=== PATIENT | male | born 1940 | race Caucasian/White ===

== ENCOUNTER 2022-12-29 11:14 | Inpatient (IN) | payer MEDICARE, BC ==
[~2022-12-29] VITALS: Ht 172.7 cm; Wt 84.1 kg
[~2022-12-29 11:14] MED LIST: ALLO100T PO; ASPI-1071 PO; ATOR20TA66 PO; BIO COMPLETE PO; CARV6.253 PO; CHOL100046 PO; LECI400C2 PO; LOSA25TA41 PO; NITR0.4T51 SL; UBID30CA11 PO; VITAMIN C PO; [UNRECOGNIZED DRUG - OTHER] PO
[2022-12-29 11:45] LABS: BASOPHILS # (AUTO) 0.1 X10'3 (0-0.2); BASOPHILS % (AUTO) 0.9 % (0-1); EOSINOPHILS # (AUTO) 0.1 X10'3 (0-0.9); EOSINOPHILS % (AUTO) 0.6 % (0-6); HEMATOCRIT 40.3 % (42.0-52.0); HEMOGLOBIN 13.5 g/dl (14.0-17.9); MEAN CORPUSCULAR HEMOGLOBIN 29.5 PG (27.0-31.0); MEAN CORPUSCULAR HGB CONC 33.4 g/dL (33.0-36.5); MEAN CORPUSCULAR VOLUME 88.5 FL (78-98); MEAN PLATELET VOLUME 8.2 FL (7.4-10.4); MONOCYTES # (AUTO) 0.9 X10'3 (0-0.9); MONOCYTES % (AUTO) 9.5 % (2-12); PLATELET COUNT 257 X10'3 (140-440); RED BLOOD COUNT 4.56 X10'6 (4.70-6.10); RED CELL DISTRIBUTION WIDTH 15.5 % (11.5-14.5)
[2022-12-29 12:12] LABS: ALANINE AMINOTRANSFERASE 110 U/L (12-78); ALBUMIN 2.8 G/DL (3.4-5.0); ALBUMIN/GLOBULIN RATIO 0.7 (1.1-1.5); ALKALINE PHOSPHATASE 115 IU/L (46-116); ANION GAP 7 (8-16); ASPARTATE AMINO TRANSFERASE 78 U/L (10-37); BILIRUBIN,TOTAL 0.6 MG/DL (0.1-1.0); BLOOD UREA NITROGEN 33 MG/DL (7-18); BUN/CREATININE RATIO 21.4 (10.0-20.0); CHLORIDE 98 MMOL/L (99-107); CREATININE 1.54 MG/DL (0.60-1.10); GLUCOSE 116 MG/DL (70-104); MAGNESIUM 2.3 MG/DL (1.5-2.4); POTASSIUM 3.6 MMOL/L (3.5-5.1); SODIUM 133 MMOL/L (135-145); TOTAL CARBON DIOXIDE 27.7 MMOL/L (24-32); TOTAL PROTEIN 6.7 G/DL (6.4-8.2); eGFR 43 ML/MIN
[2022-12-29] MEDS ORDERED: FURO-150 PO ×2 (12:50)
[2022-12-29] MEDS ORDERED: POTA-208 PO ×2 (12:50)
[2022-12-29] MEDS ORDERED: POTASSIUM BICARB 20meq eff tab 20 MEQ TABLET.EFF PO STA ×2 (12:52→12:58)
[2022-12-29] MEDS ORDERED: furosemide 20MG tablet PO ONE (12:55)
[2022-12-29] MEDS ORDERED: POTASSIUM BICARBONATE/CIT AC 10 MEQ TABLET.EFF PO STA (13:07)
[2022-12-29] MEDS ORDERED: potassium Cl 20 mEq SR tablet PO PRN ×2 (14:45)
[2022-12-29] MEDS ORDERED: acetaminophen 650mg rectal suppository RC PRN (14:45)
[2022-12-29] MEDS ORDERED: magnesium 4gm in 100ml NS 100 ML IV PRN (14:45)
[2022-12-29] MEDS ORDERED: magnesium Cl slow-release 64mg tablet PO PRN (14:45)
[2022-12-29] MEDS ORDERED: ondansetron/PF 4mg/2ml inj IV PRN (14:45)
[2022-12-29] MEDS ORDERED: ondansetron 4mg rapidly disintigrating tab PO PRN (14:45)
[2022-12-29] MEDS ORDERED: magnesium hydroxide 30ml (MOM) UD suspension PO PRN (14:45)
[2022-12-29] MEDS ORDERED: potassium Cl 40MEQ/1/2NS 520ml 520 ML IV PRN (14:45)
[2022-12-29] MEDS ORDERED: magnesium 2GM in 50ml NS 50 ML IV PRN (14:45)
[2022-12-29] MEDS ORDERED: mag hydrox/Alum hydrox/simeth 30ml oral suspension PO PRN (14:45)
[2022-12-29] MEDS ORDERED: acetaminophen 325mg tablet PO PRN ×2 (14:45)
[2022-12-29] MEDS ORDERED: LEVO-65 PO (14:48)
[2022-12-29] MEDS ORDERED: FURO40TA4 PO (14:48)
[2022-12-29] MEDS ORDERED: METO-384 PO (14:48)
[2022-12-29] MEDS ORDERED: PERFLUTREN PROTEIN-A MICROSPHR (Optison) 0.22 MG/ML 3ML VIAL IV ONE (14:50)
[2022-12-29] MEDS: furosemide inj 100 MG in normal saline 100ml IV soln 90 ML IV SCH (16:45)
[2022-12-29 17:28] VITALS: BP 102/60
[2022-12-29 18:00] VITALS: BP 93/61
[2022-12-29] MEDS: K and/or MAG REPLACEMENT MC SCH (19:34)
[2022-12-29] MEDS ORDERED: temazepam 15mg capsule PO PRN (21:00)
[2022-12-29 23:00] VITALS: BP 93/44
[2022-12-30 03:00] VITALS: BP 96/62
[2022-12-30 06:00] VITALS: BP 106/69
--- NOTE | 2022-12-30 06:44 | NUR ---
Problems reprioritized. Patient report given, questions answered & plan of care reviewed with Awilda ESCALANTE. Patient stable at shift change.
[2022-12-30 07:23] LABS: BASOPHILS # (AUTO) 0.1 X10'3 (0-0.2); BASOPHILS % (AUTO) 0.8 % (0-1); EOSINOPHILS # (AUTO) 0.1 X10'3 (0-0.9); HEMOGLOBIN 13.1 g/dl (14.0-17.9); LYMPHOCYTES % (AUTO) 13.1 % (21-51); MEAN CORPUSCULAR HEMOGLOBIN 29.7 PG (27.0-31.0); MEAN CORPUSCULAR HGB CONC 33.5 g/dL (33.0-36.5); MEAN CORPUSCULAR VOLUME 88.7 FL (78-98); MEAN PLATELET VOLUME 8.4 FL (7.4-10.4); MONOCYTES # (AUTO) 0.7 X10'3 (0-0.9); MONOCYTES % (AUTO) 8.8 % (2-12); NEUTROPHILS # (AUTO) 5.8 X10'3 (1.8-7.7); NEUTROPHILS % (AUTO) 76.3 % (42-75); PLATELET COUNT 223 X10'3 (140-440); RED CELL DISTRIBUTION WIDTH 15.4 % (11.5-14.5); WHITE BLOOD COUNT 7.5 X10'3 (4.5-11.0)
[2022-12-30 07:53] LABS: ALANINE AMINOTRANSFERASE 107 U/L (12-78); ALBUMIN 2.6 G/DL (3.4-5.0); ALBUMIN/GLOBULIN RATIO 0.7 (1.1-1.5); ALKALINE PHOSPHATASE 102 IU/L (46-116); ANION GAP 6 (8-16); ASPARTATE AMINO TRANSFERASE 60 U/L (10-37); BILIRUBIN,TOTAL 0.6 MG/DL (0.1-1.0); BLOOD UREA NITROGEN 30 MG/DL (7-18); BUN/CREATININE RATIO 20.3 (10.0-20.0); CALCIUM 8.6 MG/DL (8.5-10.1); CHLORIDE 99 MMOL/L (99-107); CREATININE 1.48 MG/DL (0.60-1.10); GLUCOSE 90 MG/DL (70-104); MAGNESIUM 2.1 MG/DL (1.5-2.4); POTASSIUM 3.4 MMOL/L (3.5-5.1); SODIUM 138 MMOL/L (135-145); TOTAL CARBON DIOXIDE 32.6 MMOL/L (24-32); TOTAL PROTEIN 6.1 G/DL (6.4-8.2); eGFR 46 ML/MIN
[2022-12-30] MEDS: K and/or MAG REPLACEMENT MC SCH (08:15)
[2022-12-30] MEDS: furosemide inj 100 MG in normal saline 100ml IV soln 90 ML IV SCH (08:55)
[2022-12-30 11:00] VITALS: BP 95/62
[2022-12-30] MEDS ORDERED: METO-395 PO (11:24)
[2022-12-30] MEDS ORDERED: ASPI-611 PO (11:24)
[2022-12-30] MEDS ORDERED: EMPA10TA PO (11:24)
[2022-12-30] MEDS ORDERED: POTA-206 PO (11:26)
--- NOTE | 2022-12-30 15:26 | NUR ---
Discharge to home friend to transport. Instructions for medications understood, Pt. is instructed to limit his salt intake. He has an appointment with Dr. Ponce on Sunday next week. Alert and able to make independent decisions and follow up care decisions. Reviewed new medications and purpose, and potential side effects.
== END 2022-12-30 15:02 | disposition home or self-care (01) | DRG 291 ==
LOC: ER 11:15 → ED HOLD 14:50 → PCU 3S 17:41
PROVIDERS: ADMIT Family Medicine; ATTEND Family Medicine
DX: I50.43 Acute on chronic combined systolic (congestive) and diastolic (congestive) heart failure (principal); N17.0 Acute kidney failure with tubular necrosis; E87.1 Hypo-osmolality and hyponatremia; E78.00 Pure hypercholesterolemia, unspecified; M10.9 Gout, unspecified; I95.9 Hypotension, unspecified; N18.9 Chronic kidney disease, unspecified; I25.10 Atherosclerotic heart disease of native coronary artery without angina pectoris; I25.2 Old myocardial infarction; Z79.84 Long term (current) use of oral hypoglycemic drugs; Z85.46 Personal history of malignant neoplasm of prostate; Z87.891 Personal history of nicotine dependence; Z90.49 Acquired absence of other specified parts of digestive tract; Z91.148 Patient's other noncompliance with medication regimen for other reason; Z95.0 Presence of cardiac pacemaker; Z95.1 Presence of aortocoronary bypass graft; Z95.2 Presence of prosthetic heart valve; Z88.8 Allergy status to other drugs, medicaments and biological substances; Z79.899 Other long term (current) drug therapy; Z79.82 Long term (current) use of aspirin
CPT/HCPCS: 36415; 71045; 80053; 83735; 83880; 84484; 85025; 93306; 97161; 97530; 99285; G0378; J1940; J3490